=== PATIENT | male | born 1970 | race Caucasian/White ===

== ENCOUNTER 2017-05-15 13:33 | Emergency (ER) | payer SELFPAY ==
[2017-05-15 14:01] LABS: Hematocrit 43 % (42-52); Hemoglobin 15.3 g/dl (14.0-18.0); Mean Corpuscular HGB Conc 35 g/dl (31-36); Mean Corpuscular Hemoglobin 35 pg (27-31); Mean Corpuscular Volume 99 fL (80-94); Mean Platelet Volume 7 um3 (7.4-10.4); Red Blood Count 4.39 10^6/ul (4.0-5.4); Red Cell Distribution Width 13 % (10.5-15); White Blood Count 14.8 10^3/ul (3.5-10.8)
[2017-05-15 14:20] LABS: ALT 34 U/L (7-52); Albumin 4.3 g/dL (3.2-5.2); Alkaline Phosphatase 66 U/L (34-104); BUN/Creatinine Ratio 16.9 (8-20); Blood Urea Nitrogen 10 mg/dL (6-24); CO2 Carbon Dioxide 26 mmol/L (22-32); Calcium 9.6 mg/dL (8.6-10.3); Chloride 92 mmol/L (101-111); EGFR African American 189.4 (>60); EGFR Non-African American 147.2 (>60); Globulin 3.3 g/dL (2-4); Glucose 118 mg/dL (70-100); Sodium 128 mmol/L (133-145); Total Protein 7.6 g/dL (6.4-8.9)
--- NOTE | 2017-05-15 14:41 | RAD ---
Indication: Right Hip pain. Single view of the pelvis demonstrates pelvic ring to be intact. Degenerative changes of the right hip are noted. Pelvic ring is otherwise unremarkable. IMPRESSION: DEGENERATIVE CHANGES OF THE RIGHT HIP IS NOTED. NO FRACTURE IS NOTED.
--- NOTE | 2017-05-15 14:41 | RAD ---
HISTORY: Right leg pain, status post fall COMPARISONS: None VIEWS: 4, Frontal and lateral views of the right foreleg FINDINGS: BONE DENSITY: Normal. BONES: There is an oblique nondisplaced fracture through the distal fibula with articular extension. JOINTS: There is no arthropathy. ALIGNMENT: There is no dislocation. SOFT TISSUES: Unremarkable. OTHER FINDINGS: None. IMPRESSION: OBLIQUE NONDISPLACED FRACTURE OF THE DISTAL FIBULA
--- NOTE | 2017-05-15 14:43 | RAD ---
Indication: Back pain. 3 views of lumbar spine demonstrates vertebral bodies to be normal in height. Disc space narrowing at L2-L3 is noted without fracture. Transverse processes demonstrate no fracture. IMPRESSION: Degenerative disc disease at L2-L3.
[2017-05-15 14:50] LABS: Anion Gap 10 mmol/L (2-11)
[2017-05-15] MEDS ORDERED: Ketorolac INJ* 30 MG/ML 1 ML VIAL IV PUSH ONE (15:31)
[2017-05-15 16:10] VITALS: BP 170/86
--- NOTE | 2017-05-16 13:04 | RAD ---
HISTORY: Right ankle pain, trauma COMPARISONS: None VIEWS: 3, Frontal, lateral, and oblique views of the right ankle submitted for review on May 16, 2017 FINDINGS: BONE DENSITY: Normal. BONES: There is an oblique, comminuted fracture of the distal fibula with articular extension. JOINTS: There is no arthropathy. ALIGNMENT: There is no dislocation. SOFT TISSUES: Unremarkable. OTHER FINDINGS: None. IMPRESSION: OBLIQUE, COMMINUTED FRACTURE OF THE DISTAL FIBULA
--- NOTE | 2017-05-16 18:58 | ED ---
Cheko Coley Thomas, scribed for Hayden Hayes MD on 05/15/17 at 1358 . Lower Extremity - HPI Summary HPI Summary: The pt is a 46 y/o M c/o right ankle pain s/p a fall from 20 feet that occurred about an hour ago. The patient was using a saw at an elevated location when the saw became jammed on an object, pushing the patient off the ledge and causing the fall. The patient landed first on his right leg and then rolled backwards. The patient landed on gravel and jimmy. The patients cousin is present, and he confirms this mechanism of injury. The right ankle pain is rated 6/10. The pain is aggravated by palpation and is alleviated by nothing. Pt denies LOC, head trauma, neck pain, hip pain, back pain, and knee pain. 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 Aggravating Factor(s): Other - Palpation Alleviating Factor(s): Nothing PMH/Surg Hx/FS Hx/Imm Hx Previously Healthy: No Endocrine/Hematology History: Denies: Hx Diabetes Cardiovascular History: Reports: Hx Hypertension - Surgical History Surgery Procedure, Year, and Place: None. Infectious Disease History: No Infectious Disease History: Denies: Traveled Outside the [place] in Last 30 Days - Family History Known Family History: Positive: Hypertension, Diabetes - Social History Occupation: Employed Full-time Alcohol Use: Weekly Hx Substance Use: Yes Substance Use Type: Reports: Marijuana Substance Use Comment - Amount & Last Used: occasionally Hx Tobacco Use: Yes Smoking Status (MU): Heavy Every Day Tobacco Smoker Type: Cigarettes - 2 PPD Review of Systems Positive: Other - Right ankle pain; NEGATIVE: neck pain, hip pain, back pain, knee pain Neurological: Other - NEGATIVE: LOC, head trauma All Other Systems Reviewed And Are Negative: Yes Physical Exam - Summary Physical Exam Summary: VITAL SIGNS: Reviewed. GENERAL: Patient is a well-developed and nourished male who is lying comfortable in the stretcher. Patient is not in any acute respiratory distress. HEAD AND FACE: No signs of trauma. No ecchymosis, hematomas or skull depressions. No sinus tenderness. EYES: PERRLA, EOMI x 2, No injected conjunctiva, no nystagmus. EARS: Hearing grossly intact. Ear canals and tympanic membranes are within normal limits. MOUTH: Oropharynx within normal limits. NECK: Supple, trachea is midline, no adenopathy, no JVD, no carotid bruit, no c- spine tenderness, neck with full ROM. CHEST: Symmetric, no tenderness at palpation LUNGS: Clear to auscultation bilaterally. No wheezing or crackles. CVS: Regular rate and rhythm, S1 and S2 present, no murmurs or gallops appreciated. ABDOMEN: Soft, non-tender. No signs of distention. No rebound no guarding, and no masses palpated. Bowel sounds are normal. EXTREMITIES: There is pain in the right lower extremity on palpation. There is no deformity, ecchymosis, or hematoma. FROM in all major joints. No edema, no cyanosis or clubbing. There are good pulses and good capillary refill. NEURO: Alert and oriented x 3. No acute neurological deficits. Speech is normal and follows commands. SKIN: Dry and warm Triage Information Reviewed: Yes Vital Signs On Initial Exam: Initial Vitals Temp Pulse Resp BP Pulse Ox 99 F 111 16 161/84 98 05/15/17 13:39 05/15/17 13:39 05/15/17 13:39 05/15/17 13:39 05/15/17 13:39 Vital Signs Reviewed: Yes Diagnostics - Vital Signs Vital Signs Temp Pulse Resp BP Pulse Ox 05/15/17 13:39 99 F 111 16 161/84 98 - Laboratory Lab Results: Lab Results 05/15/17 05/15/17 05/15/17 Range/Units 13:55 13:55 15:10 WBC 14.8 H (3.5-10.8) 10^3/ul RBC 4.39 (4.0-5.4) 10^6/ul Hgb 15.3 (14.0-18.0) g/dl Hct 43 (42-52) % MCV 99 H (80-94) fL MCH 35 H (27-31) pg MCHC 35 (31-36) g/dl RDW 13 (10.5-15) % Plt Count 460 H (150-450) 10^3/ul MPV 7 L (7.4-10.4) um3 Neut % (Auto) 60.2 (38-83) % Lymph % (Auto) 28.5 (25-47) % Rains % (Auto) 7.3 (1-9) % Eos % (Auto) 1.9 (0-6) % Baso % (Auto) 2.1 H (0-2) % Absolute Neuts (auto) 8.9 H (1.5-7.7) 10^3/ul Absolute Lymphs (auto) 4.2 (1.0-4.8) 10^3/ul Absolute Monos (auto) 1.1 H (0-0.8) 10^3/ul Absolute Eos (auto) 0.3 (0-0.6) 10^3/ul Absolute Basos (auto) 0.3 H (0-0.2) 10^3/ul Absolute Nucleated RBC 0 10^3/ul Nucleated RBC % 0 Sodium 128 L (133-145) mmol/L Potassium TNP 3.9 Chloride 92 L (101-111) mmol/L Carbon Dioxide 26 (22-32) mmol/L Anion Gap 10 (2-11) mmol/L BUN 10 (6-24) mg/dL Creatinine 0.59 L (0.67-1.17) mg/dL Est GFR ( Amer) 189.4 (>60) Est GFR (Non-Af Amer) 147.2 (>60) BUN/Creatinine Ratio 16.9 (8-20) Glucose 118 H (70-100) mg/dL Calcium 9.6 (8.6-10.3) mg/dL Total Bilirubin 0.30 (0.2-1.0) mg/dL AST TNP 26 ALT 34 (7-52) U/L Alkaline Phosphatase 66 (34-104) U/L Total Protein 7.6 (6.4-8.9) g/dL Albumin 4.3 (3.2-5.2) g/dL Globulin 3.3 (2-4) g/dL Albumin/Globulin Ratio 1.3 (1-3) Result Diagrams: 05/15/17 13:55 05/15/17 15:10 Lab Statement: Any lab studies that have been ordered have been reviewed, and results considered in the medical decision making process. - Radiology Pelvis XR Xray Interpretation: No Acute Changes - DEGENERATIVE CHANGES OF THE RIGHT HIP IS NOTED. NO FRACTURE IS NOTED. ED physician has reviewed this report and agrees. Radiology Interpretation Completed By: Radiologist L-Spine XR Xray Interpretation: No Acute Changes - DDD at L2-L3. ED physician has reviewed this report and agrees. Radiology Interpretation Completed By: Radiologist Lower Extremity XR Xray Interpretation: Positive (See Comments) - Oblique nondisplaced fracture of the distal fibula. ED physician has reviewed this report and agrees. Radiology Interpretation Completed By: Radiologist Lower Extremity Course/Dx - Course Assessment/Plan: The pt is a 46 y/o M c/o right ankle pain s/p a fall from 20 feet that occurred about an hour ago. The patient was using a saw at an elevated location when the saw became jammed on an object, pushing the patient off the ledge and causing the fall. The patient landed first on his right leg and then rolled backwards. The patient landed on gravel and jimmy. The patients cousin is present, and he confirms this mechanism of injury. The right ankle pain is rated 6/10. The pain is aggravated by palpation and is alleviated by nothing. Pt denies LOC, head trauma, neck pain, hip pain, back pain, and knee pain. Bloodwork shows a WBC count of 14.8 and Sodium of 128. Lower Extremity XR shows Oblique nondisplaced fracture of the distal fibula. Pelvis and L-Spine radiographs are negative for acute disease. Since the patient has a distal fibular fracture, he was placed in a posterior splint. The patient will be given crutches and will be discharged home with follow up with Dr. Schwartz, orthopedics. The patient is hemodynamically stable and alert and oriented x 3. - Diagnoses Differential Diagnosis/HQI/PQRI: Positive: Contusion, Dislocation, Fracture ( Closed), Sprain, Strain Provider Diagnoses: Accidental fall, Fibular fracture Discharge - Discharge Plan Condition: Stable Disposition: HOME Prescriptions: oxyCODONE/Acetamin 5/325 MG* [Percocet 5/325 TAB*] 1 tab PO Q6H PRN #12 tab MDD 4 PRN Reason: Pain Patient Education Materials: Leg Fracture (ED) Referrals: Ofelia Schwartz MD [Medical Doctor] - 3 Days Additional Instructions: Follow up with Dr. Schwartz, orthopedics, in 2-3 days. The documentation as recorded by the Cheko jackson Thomas accurately reflects the service I personally performed and the decisions made by , Hayden Hayes MD.
== END 2017-05-15 16:09 | disposition home or self-care (01) ==
LOC: ED 13:33
DX: M25.571 Pain in right ankle and joints of right foot (principal); Z86.79 Personal history of other diseases of the circulatory system; Z87.891 Personal history of nicotine dependence; S82.401A Unspecified fracture of shaft of right fibula, initial encounter for closed fracture; W19.XXXA Unspecified fall, initial encounter; Y93.9 Activity, unspecified; Y92.9 Unspecified place or not applicable
CPT/HCPCS: 36415; 72100; 72170; 80053; 85025; 96374; 99282; J1885